=== PATIENT | female | born 1985 | race Hispanic/Latino ===

== ENCOUNTER 2019-02-13 09:50 | Emergency (ER) | payer OTHER ==
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
[2019-02-13 13:03] VITALS: BP 115/74
== END 2019-02-13 13:01 | disposition home or self-care (01) ==
LOC: ED 09:50
DX: M25.512 Pain in left shoulder (principal); M79.18 Myalgia, other site
CPT/HCPCS: 99282